=== PATIENT | female | born 1965 | race Caucasian/White ===

== ENCOUNTER 2020-12-06 13:12 | Outpatient (CLI) | payer OTHER | END 2020-12-06 23:59 | disposition home or self-care (01) | LOC: CFH 13:12 | PROVIDERS: ATTEND Obstetrics & Gynecology | DX: Z12.31 Encounter for screening mammogram for malignant neoplasm of breast (principal); N63.10 Unspecified lump in the right breast, unspecified quadrant | CPT/HCPCS: 77063; 77067 ==

== ENCOUNTER → 2021-01-02 | Outpatient (CLI) | payer OTHER | END | disposition home or self-care (01) | LOC: CFH 08:31 | PROVIDERS: ATTEND Obstetrics & Gynecology | DX: N60.01 Solitary cyst of right breast (principal); N63.41 Unspecified lump in right breast, subareolar | CPT/HCPCS: 76642; 77065 ==

== ENCOUNTER 2021-08-06 09:23 | Outpatient (CLI) | payer OTHER ==
[2021-08-06 10:38] LABS: BASOPHILS % (AUTO) 1 % (0-1); EOSINOPHILS % (AUTO) 3 % (1-7); LYMPHOCYTES % (AUTO) 24 % (22-44); MEAN CORPUSCULAR HEMOGLOBIN 30.9 pg (27.0-34.8); MEAN CORPUSCULAR HGB CONC 33.7 g/dL (32.4-35.8); MONOCYTES % (AUTO) 6 % (2-9); NEUTROPHILS % (AUTO) 66 % (42-75); PLATELET COUNT 225 x10^3/uL (130-400); RED BLOOD COUNT 4.65 x10^6/uL (3.82-5.3); RED CELL DISTRIBUTION WIDTH 13.3 % (9.6-15.2)
[2021-08-06 10:44] LABS: MICROSCOPIC NOT IND
[2021-08-06 10:45] LABS: ALANINE AMINOTRANSFERASE 22 U/L (12-78); ALBUMIN 3.7 g/dL (3.4-5.0); ANION GAP 4 mmol/L (5-15); CHLORIDE 105 mmol/L (98-107); CREATININE 0.67 mg/dL (0.55-1.02)
[2021-08-06 10:47] LABS: ALKALINE PHOSPHATASE 102 U/L (45-117); BILIRUBIN,TOTAL 0.7 mg/dL (0.2-1.0); TOTAL PROTEIN 7.7 g/dL (6.4-8.2)
[2021-08-06] MEDS ORDERED: BIOT800T PO (12:01)
[2021-08-06] MEDS ORDERED: AMAN100C7 PO (12:01)
[2021-08-06] MEDS ORDERED: INTE0.3V2 INJ (12:01)
[2021-08-06] MEDS ORDERED: [UNRECOGNIZED DRUG - OTHER] TP (12:01)
[2021-08-06] MEDS ORDERED: CYAN500T7 PO (12:01)
[2021-08-06] MEDS ORDERED: [UNRECOGNIZED DRUG - OTHER] PO (12:01)
[2021-08-06] MEDS ORDERED: PROG100C16 PO (12:01)
[2021-08-06] MEDS ORDERED: LEVO75TA5 PO (12:01)
[2021-08-06] MEDS ORDERED: OMEG-124 PO (12:01)
[2021-08-06] MEDS ORDERED: ESTR1PAT7 TP (12:01)
[2021-08-06] MEDS ORDERED: CHOL10003 PO (12:01)
[2021-08-06] MEDS ORDERED: ASHWAGANDHA PO (12:07)
[2021-08-06] MEDS ORDERED: GOLI APPLE CIDER PO (12:07)
== END 2021-08-06 23:59 | disposition home or self-care (01) ==
LOC: STAR 09:23
PROVIDERS: ATTEND Psychiatry & Neurology Clinical Neurophysiology
DX: Z01.818 Encounter for other preprocedural examination (principal); N81.10 Cystocele, unspecified; N81.6 Rectocele
CPT/HCPCS: 36415; 80053; 81003; 85025; 93005

== ENCOUNTER 2021-08-14 07:05 | Day surgery (SDC) | payer OTHER ==
[~2021-08-14] VITALS: Ht 170.2 cm; Wt 86.9 kg
[~2021-08-14 07:05] MED LIST: AMAN100C7 PO; ASHWAGANDHA PO; BIOT800T PO; CHOL10003 PO; CYAN500T7 PO; ESTR1PAT7 TP; GOLI APPLE CIDER PO; INTE0.3V2 INJ; LEVO75TA5 PO; OMEG-124 PO; PROG100C16 PO; [UNRECOGNIZED DRUG - OTHER] PO; [UNRECOGNIZED DRUG - OTHER] TP
[2021-08-14 07:29] VITALS: BP 97/65
[2021-08-14] MEDS ORDERED: ACETAMINOPHEN 500 MG TABLET PO ONE (07:30)
[2021-08-14] MEDS ORDERED: CHLORHEXIDINE 15 ML UDC PO ONE (08:00)
[2021-08-14] MEDS ORDERED: LACTATED RINGERS 1,000 ML IV SCH (08:00)
[2021-08-14] MEDS ORDERED: MEPERIDINE/PF 25MG/0.5ML IVPush PRN (08:30)
[2021-08-14] MEDS ORDERED: DIPHENHYDRAMINE 50 MG/ML, 1ML IVPush PRN (08:30)
[2021-08-14] MEDS ORDERED: LABETALOL 5MG/ML, 20ML IV PRN (08:30)
[2021-08-14] MEDS ORDERED: hydrALAzine 20 MG/ML, 1ML IV PRN (08:30)
[2021-08-14] MEDS ORDERED: OXYcodone 5 MG/5 ML ORAL.SOL UDC PO PRN (08:30)
[2021-08-14] MEDS ORDERED: PROMETHAZINE 25 MG/ML, 1ML IVPush PRN (08:30)
[2021-08-14] MEDS ORDERED: HYDROmorphone 1 MG/ML, 1ML INJ IVPush PRN (08:30)
[2021-08-14] MEDS ORDERED: FENTANYL PF 100 MCG/2ML IV PRN (08:30)
[2021-08-14] MEDS ORDERED: HALOPERIDOL 5 MG/ML IV PRN (08:30)
[2021-08-14] MEDS ORDERED: ACETAMINOPHEN 325 MG TABLET PO PRN (08:30)
== END 2021-08-14 13:02 | disposition home or self-care (01) ==
LOC: OUT 07:05
PROVIDERS: ATTEND Obstetrics & Gynecology
DX: N81.89 Other female genital prolapse (principal); N81.11 Cystocele, midline; N81.6 Rectocele; R33.8 Other retention of urine; G35 Multiple sclerosis; K59.00 Constipation, unspecified; E89.0 Postprocedural hypothyroidism; F17.210 Nicotine dependence, cigarettes, uncomplicated; Z20.822 Contact with and (suspected) exposure to COVID-19; Z79.890 Hormone replacement therapy; Z79.899 Other long term (current) drug therapy; Z90.49 Acquired absence of other specified parts of digestive tract
CPT/HCPCS: 87635